=== PATIENT | male | born 1990 | race Caucasian/White ===

== ENCOUNTER 2018-06-18 16:40 | Emergency (ER) | payer MEDICAID ==
[~2018-06-18] VITALS: Ht 185.4 cm; Wt 67.3 kg
[~2018-06-18 16:40] MED LIST: NO HOME MEDS
[2018-06-18] MEDS ORDERED: normal saline 1000ML IV soln IVB ONE (16:45)
[2018-06-18] MEDS ORDERED: LORazepam 2 mg/ml vial IV ONE (16:45)
[2018-06-18] MEDS ORDERED: ondansetron/PF 4mg/2ml inj IV ONE ×2 (16:55→20:50)
[2018-06-18 17:01] LABS: BASOPHILS # (AUTO) 0.1 X10'3 (0-0.2); EOSINOPHILS # (AUTO) 0.1 X10'3 (0-0.9); EOSINOPHILS % (AUTO) 0.9 % (0-6); HEMOGLOBIN 17.3 g/dl (14.0-17.9); MEAN CORPUSCULAR HGB CONC 34.3 g/dL (33.0-36.5); WHITE BLOOD COUNT 11.1 X10'3 (4.5-11.0)
[2018-06-18 17:03] LABS: BASOPHILS % (AUTO) 0.8 % (0-1); HEMATOCRIT 50.4 % (42.0-52.0); LYMPHOCYTES # (AUTO) 2.5 X10'3 (1.1-4.8); LYMPHOCYTES % (AUTO) 22.5 % (21-51); MEAN CORPUSCULAR HEMOGLOBIN 31.8 PG (27.0-31.0); MEAN CORPUSCULAR VOLUME 92.7 FL (78-98); MEAN PLATELET VOLUME 8.5 FL (7.4-10.4); MONOCYTES # (AUTO) 0.7 X10'3 (0-0.9); MONOCYTES % (AUTO) 6.6 % (2-12); NEUTROPHILS # (AUTO) 7.7 X10'3 (1.8-7.7); NEUTROPHILS % (AUTO) 69.2 % (42-75); PLATELET COUNT 291 X10'3 (140-440); RED BLOOD COUNT 5.43 X10'6 (4.70-6.10); RED CELL DISTRIBUTION WIDTH 13.9 % (11.5-14.5)
--- NOTE | 2018-06-18 17:35 | NUR ---
called poison control. report lexpro 20 mg x22 pills intentional overdose. Poison control reports to look out for seizures and prolonged QT. PC recommends mg, k, ca to be at the higher sides of normal. recommend repeating ekg in 12 hrs. reported PC recommendations to dr. lawrence.
[2018-06-18 17:43] LABS: ALANINE AMINOTRANSFERASE 22 U/L (12-78); ALBUMIN 3.9 G/DL (3.4-5.0); ALBUMIN/GLOBULIN RATIO 1.2 (1.1-1.5); ALKALINE PHOSPHATASE 88 IU/L (46-116); ANION GAP 7 (8-16); ASPARTATE AMINO TRANSFERASE 13 U/L (10-37); BILIRUBIN,TOTAL 0.4 MG/DL (0.1-1.0); BLOOD UREA NITROGEN 14 MG/DL (7-18); BUN/CREATININE RATIO 14.7 (5.4-32.0); CALCIUM 8.2 MG/DL (8.5-10.1); CHLORIDE 106 MMOL/L (99-107); CREATININE 0.95 MG/DL (0.60-1.10); GLUCOSE 98 MG/DL (70-104); POTASSIUM 3.4 MMOL/L (3.5-5.1); SODIUM 141 MMOL/L (135-145); TOTAL CARBON DIOXIDE 27.7 MMOL/L (24-32); TOTAL PROTEIN 7.2 G/DL (6.4-8.2); eGFR > 90 ML/MIN
[2018-06-18 17:47] LABS: URINE AMPHETAMINE SCREEN NEGATIVE (Neg); URINE BARBITUATE SCREEN NEGATIVE (Neg); URINE BENZODIAZEPINES SCREEN NEGATIVE (Neg); URINE CANNABINOID SCREEN NEGATIVE (Neg); URINE COCAINE SCREEN NEGATIVE (Neg); URINE METHADONE SCREEN NEGATIVE (Neg); URINE OPIATE SCREEN NEGATIVE (Neg); URINE PHENCYCLIDINE SCREEN NEGATIVE (Neg)
[2018-06-18 17:54] LABS: ETHANOL 0.245 GM/DL (0.0-0.010)
[2018-06-18 17:55] LABS: ACETAMINOPHEN < 2.0 UG/ML (10-30)
[2018-06-18 18:00] LABS: CLARITY,URINE CLEAR (Clear); COLOR,URINE STRAW (Yellow); GLUCOSE, URINE NEGATIVE (Neg); KETONES,URINE NEGATIVE (Neg); LEUKOCYTE ESTERASE ,URINE NEGATIVE (Neg); NITRITES, URINE NEGATIVE (Neg); OCCULT BLOOD,URINE NEGATIVE (Neg); PH,URINE 5.5 (4.8-8.0); PROTEIN,URINE NEGATIVE (Neg); UROBILINOGEN,URINE 0.2 E.U/dL (0.2-1.0)
[2018-06-18 18:02] LABS: UA COLLECTION TYPE STRAIGHT CATH
--- NOTE | 2018-06-18 21:15 | NUR ---
Pt affirms OD was an active suicide attempt. He denies audio/visual hallucinations at this time. Pt has been actively cutting, right upper thigh, as a coping mechanism which he reports started about 2 years ago, shortly after his first admission to a [facility]. Mood is labile, vascillating between exaggerated mannerisms and tearfulness. He reports being estranged from a significant number of family members as a result of his sexual identification, but works with his step father, with whom he has a supportive relationship. Pt states, "I use to have everything... a good job, people who love me, a nice car, friends. I've lost all that. I keep thinking about the bad choices I make and it makes me not want to go on." Pt denies a precipitating event to this OD incident.
--- NOTE | 2018-06-19 00:10 | NUR ---
[place], Poison Control, f/u. Recommending repeat EKG, continued monitoring for QT elongtion and changes in electrolytes (K>4, ca >9, Mg >2). EDMD Patee notified.
--- NOTE | 2018-06-19 03:15 | NUR ---
The patient was moved to bed #23. He was cooperative with the move and was changed into [facility] scrubs.
--- NOTE | 2018-06-19 04:43 | NUR ---
The patient appears to be asleep
[2018-06-19 05:50] VITALS: BP 152/89
--- NOTE | 2018-06-19 06:57 | NUR ---
Received pt in bed sleeping w/o distress with normal respirations. Awoke and ambulated to bathroom and returned to bed. Currently resting in bed.
--- NOTE | 2018-06-19 10:00 | NUR ---
Pt ate breakfast and used bathroom. Calm and cooperative. Spoke with [facility] and placed on 5150 for DTS. IN bed resting.
== END 2018-06-19 14:48 ==
LOC: ER 16:40
DX: T43.222A Poisoning by selective serotonin reuptake inhibitors, intentional self-harm, initial encounter (principal); F10.929 Alcohol use, unspecified with intoxication, unspecified; F32.9 Major depressive disorder, single episode, unspecified; Y92.89 Other specified places as the place of occurrence of the external cause
CPT/HCPCS: 36415; 80053; 80305; 80320; 80329; 81003; 84443; 85025; 93005; 96374; 96375; 96376; 99285; J2060; J2405; J7030

== ENCOUNTER 2018-06-19 13:39 | Inpatient (IN) | payer MEDICAID ==
[~2018-06-19] VITALS: Ht 185.4 cm; Wt 65.4 kg
[2018-06-19 15:35] VITALS: BP 132/99
[2018-06-19] MEDS ORDERED: tuberculin, purif. prot. deriv. 5 units/0.1ml ID ONE (16:00)
[2018-06-19] MEDS ORDERED: hydrOXYzine 25 MG tablet PO PRN (16:00)
[2018-06-19] MEDS ORDERED: loperamide 2mg capsule PO PRN (16:00)
[2018-06-19] MEDS ORDERED: magnesium hydroxide 30ml (MOM) UD suspension PO PRN (16:00)
[2018-06-19] MEDS ORDERED: mag hydrox/Alum hydrox/simeth 30ml oral suspension PO PRN (16:00)
[2018-06-19] MEDS ORDERED: LORazepam 1 MG tablet PO PRN (16:00)
[2018-06-19] MEDS ORDERED: acetaminophen 325mg tablet PO PRN ×2 (16:00)
--- NOTE | 2018-06-19 16:51 | NUR ---
ADMIT NOTE Pt admitted at 1515 to room 324A on a 5150 for DTS from [facility] after a suicide attempt of ingesting 22 lexapro with vodka. Pt was found unresponsive in the ambulance bay on 06/18/18. He reports that he had been planning this suicide since mid-May and believed this would kill him. He wrote several goodbye letters to his friends. Last psychiatric hospitalization was at [facility] in 2017. He is not currently on any medications (lexapro was an old bottle, was not taking). Pt has superficial scratches on his right thigh. Pictures documented. Pt changed into green scrubs on arrival and belongings checked for safety and inventoried. Vitals stable. Oriented to unit. Placed on q 15 min safety checks.
[2018-06-19 20:55] VITALS: BP 120/82
--- NOTE | 2018-06-20 00:58 | NUR ---
Nursing Progress Note Legal hold: 5150 Client on involuntary status for DTS Report received with use of SBAR from: EVIE Albert Why are they here: Pt found unresponsive on 06/18/18 after OD on lexapro and vodka. Pt had been planning this attempt since mid-May, and wrote several good bye letters to friends and family. Assessment What has happened this shift: Pt sitting on bed at change of shift. During 1:1, pt stated he feels "irritated and angry" that he is unable to complete anything, "I can't even kill myself properly." Pt stated he doesn't feel SI in this moment, but he is still sad and hopeless. He presents as somber and melancholy, making only intermittent eye contact during the conversation. Pt shared emotions and potential triggers with some probing; he has a general, chronic sense of worthlessness. He has friends but "feel bad they have to put up with this crap I put them through (referring to SAs)". He mentioned a passion for art and music as an outlet several times, stating he even tried study music in college but it didn't pagan out due to circumstances in his private life (he supported his ex-gf through parental deaths during this time which took up most of his reserves causing him to eventually drop courses). He feels lost and without a sense of direction: "I am tired of waking up, going to my job (which he is unhappy at due to poor management), and coming home waiting to go to bed just so I can do it again the next day." Pt stated previous medications did not work for him so he stopped taking them. After assessment pt attended snack and paced the halls several times before turning in to sleep. S/I: Denies A/VH: Denies Sleep: See Sleep Hour Charting ADL's: Independent Group attendance: Y - HS Snack Were meds taken: N/A Any med S/E: N/A Mental Status Exam Appearance: Clean, long hair loose and brushed, wearing hospital green scrubs and nonskid socks Eye contact: Intermittent, when contact made it is brief Behavior: Cooperative, paced halls several times, attended snack, sat in room Speech: WNL Mood: "I feel irritated and angry" Affect: Flat Thought process: Linear Thought Content: Why is unable to complete "simple tasks", Why he can't follow through, Disliking his job Cognition: A&Ox4 Insight: Poor Judgment: Poor PRN's used: Atarax Therapeutic interventions: 1:1 assessment for severity of symptoms, therapeutic listening with positive reinforcement, reassurance, encouraged group attendance, Q15 minute safety checks. Restraints/seclusion/emergency medication: none Justification of Continued Inpatient Treatment: Pt has recent serious OD attempt, remains depressed and is at risk for readmittance if not stabilized.
[2018-06-20 08:18] VITALS: BP 120/83
[2018-06-20 08:44] LABS: CHOL/HDL RATIO 2.2 (0.00-4.99); CHOLESTEROL 159 MG/DL (0-200); HDL CHOLESTEROL 72 MG/DL (35-60); LDL CHOLESTEROL 79 MG/DL (50-100); TRIGLYCERIDES 73 MG/DL (20-135)
[2018-06-20 08:50] LABS: HEMOGLOBIN A1C 5.4 % (4.5-6.2)
--- NOTE | 2018-06-20 15:03 | NUR ---
Nursing Progress Note Legal hold: 5150 Client on involuntary status for DTS Report received with use of SBAR from: EVIE Albert Why are they here: Pt found unresponsive on 06/18/18 after OD on lexapro and vodka. Pt had been planning this attempt since mid-May, and wrote several good bye letters to friends and family. Assessment What has happened this shift: Patient was asleep at change of shift. Patient was up for breakfast and social with peers. Patient took a nap after breakfast. He presents a little sad with very poor eye contact during this long conversation. Patient was very open about his feelings and his life. Patient has a few close friends and lives with his roommate. Patient spoke of a very stressful and physical work environment. Patient states he quit his job on Sunday and his suicide attempt happened on Sunday. Patient states he doesn't feel suicidal at the moment but feels hopeless. Patient thinks he could get his job back if he wanted to but he is not sure. Patient works with his step-father who has been good to him. Patient went to group today. Patient states he used to take medication for ADHD and Zoloft for depression but nothing ever helped him feel normal. Patient denies sexual abuse but states he was bullied his entire school years, because he was small or whatever reason they wanted to. Patient appears very depressed. S/I: Denies A/VH: Denies Sleep: 7 but patient doesn't believe he slept but a couple of hours. ADL's: Independent Group attendance: Y - HS Snack Were meds taken: N/A Any med S/E: N/A Mental Status Exam Appearance: Clean, long hair loose and brushed, wearing hospital green scrubs and nonskid socks Eye contact: Intermittent, when contact made it is brief Behavior: Cooperative, paced halls several times, attended snack, sat in room Speech: WNL Mood: Depressed Affect: Flat Thought process: Linear Thought Content: Dislikes the stress of his job Cognition: A&Ox4 Insight: Poor Judgment: Poor PRN's used: Atarax Therapeutic interventions: 1:1 assessment for severity of symptoms, therapeutic listening with positive reinforcement, reassurance, encouraged group attendance, Q15 minute safety checks. Restraints/seclusion/emergency medication: none Justification of Continued Inpatient Treatment: Pt has recent serious OD attempt, remains depressed and is at risk for readmittance if not stabilized.
[2018-06-20] MEDS ORDERED: potassium Cl 40MEQ/NS 500ml 500 ML IV PRN ×2 (16:10)
[2018-06-20] MEDS ORDERED: magnesium Cl slow-release 64mg tablet PO PRN (16:10)
[2018-06-20] MEDS ORDERED: magnesium 4gm in 100ml NS 100 ML IV PRN (16:10)
[2018-06-20] MEDS ORDERED: potassium Cl 20 mEq SR tablet PO PRN ×2 (16:10)
[2018-06-20 19:00] VITALS: BP 137/82
[2018-06-20] MEDS ORDERED: QUEtiapine 25mg tablet PO SCH (21:00)
[2018-06-20] MEDS: thiamine 100mg tablet PO SCH (21:18)
--- NOTE | 2018-06-21 01:43 | NUR ---
Nursing Progress Note Legal hold: 5150 Client on involuntary status for DTS Report received with use of SBAR from: EVIE Rocha Why are they here: Pt found unresponsive on 06/18/18 after OD on lexapro and vodka. Pt had been planning this attempt since mid-May, and wrote several good bye letters to friends and family. Assessment What has happened this shift: Pt watching TV in group room at change of shift. During 1:1, pt affect is markedly different from last night; pt voluntarily elaborated on various topics regarding childhood, primary focus being his father. "I know he is smart and talented, but it's upsetting that he didn't think he was good enough to follow his passions. He was. I don't want to be like him. I don't want to be someone who wonders 'if'." Pt is restless during conversation, fidgeting and repositioning frequently. He smiles and laughs appropriately, but eye contact remains intermittent and when contact is direct, it is very brief. Pt denies suicide at this time, but states he feels sad and knows he needs to get help because his mood fluctuations "keep me from finishing anything." He stated. "I know it's weird because I'm sad but I'm also hopeful about the medications, too, that they will help me. I really hope I get good sleep tonight because it has been a long time since I've felt like I've slept well." Pt stated he is trying to learn skills from group and apply them to his life. He remains stressed about his work situation and wishes to find another job; he currently has some prospects based on recommendations from friends. Pt sat in the group room watching TV and walked the halls majority of the shift before turning in to sleep. S/I: Denies A/VH: Denies Sleep: See Sleep Hour Charting ADL's: Independent Group attendance: Y - HS Snack; pt reported he has been "hungry all day" Were meds taken: Y Any med S/E: None reported, none observed Mental Status Exam Appearance: Clean, long hair loose and brushed, wearing hospital green scrubs and nonskid socks Eye contact: Intermittent, when contact made it is brief Behavior: Cooperative, paced halls several times, attended snack, watched tv in group room Speech: WNL, Mood: "I feel sad but hopeful about the meds" Affect: Expressive Thought process: Linear Thought Content: hopeful about the medications, stressing about finding a job Cognition: A&Ox4 Insight: Poor to fair Judgment: Poor PRN's used: None Therapeutic interventions: 1:1 assessment for severity of symptoms, therapeutic listening with positive reinforcement, reassurance, encouraged group attendance, Q15 minute safety checks. Restraints/seclusion/emergency medication: none Justification of Continued Inpatient Treatment: Pt has recent serious OD attempt, remains depressed and is at risk for readmittance if not stabilized.
[2018-06-21] MEDS: thiamine 100mg tablet PO SCH ×2 (08:09→21:10)
[2018-06-21] MEDS: folic acid 1mg tablet PO SCH (08:09)
[2018-06-21] MEDS: buPROPion SR 150mg tablet PO SCH (08:09)
[2018-06-21 08:12] VITALS: BP 117/75
[2018-06-21 11:04] LABS: MAGNESIUM 2.2 MG/DL (1.5-2.4); POTASSIUM 4.6 MMOL/L (3.5-5.1)
--- NOTE | 2018-06-21 14:17 | NUR ---
Nursing Progress Note Legal hold: 5150 Client on involuntary status for DTS Report received with use of SBAR from: Altagracia Gaxiola RN Why are they here: Pt found unresponsive on 06/18/18 after OD on lexapro and vodka. Pt had been planning this attempt since mid-May, and wrote several good bye letters to friends and family. Assessment What has happened this shift: Patient was asleep at change of shift. Patient was up for breakfast and social with peers. He presents a little sad with very poor eye contact during our conversation. Patient states he doesn't feel suicidal at the moment but feels hopeless with depressed affect. Patient went to groups today. Patient states the Trazodone made no difference in how he slept but it did make him drowsy. Patient appears very depressed. Patient hangs out in the Community Room with peers and watches TV or chats which seems to lift his mood. Patient started Wellbutrin today and did not get any PRN medication at the time of this writing. S/I: Denies A/VH: Denies Sleep: Up most of the day ADL's: Independent Group attendance: Y Were meds taken: yes Any med S/E: N/A Mental Status Exam Appearance: Clean, long hair loose and brushed, wearing hospital green scrubs and nonskid socks Eye contact: Intermittent, when contact made it is brief Behavior: Cooperative, paced halls several times, Speech: WNL Mood: Depressed Affect: Flat Thought process: Linear Thought Content: Dislikes the stress of his job Cognition: A&Ox4 Insight: Poor Judgment: Poor PRN's used: None Therapeutic interventions: 1:1 assessment for severity of symptoms, therapeutic listening with positive reinforcement, reassurance, encouraged group attendance, Q15 minute safety checks. Restraints/seclusion/emergency medication: none Justification of Continued Inpatient Treatment: Pt has recent serious OD attempt, remains depressed and is at risk for readmittance if not stabilized.
[2018-06-21 19:00] VITALS: BP 112/76
[2018-06-21] MEDS ORDERED: quetiapine 100mg tablet PO SCH (21:00)
--- NOTE | 2018-06-22 00:50 | NUR ---
Nursing Progress Note: Legal hold: 5150 Client on involuntary status DTS Report received from nurse with use of SBAR: EVIE Rocha Why are they here: Pt found unresponsive on 06/18/18 outside [facility] after OD on Lexapro and vodka. Pt had been planning this attempt since mid-May, and wrote several good bye letters to friends and family. He admitted to feeling depressed, hopeless, suffering from insomnia, and isolating in his home. Pt. has a previous psych hospitalization history at [facility] for another attempted overdose. He admits that he was bullied as a child and suffers from some social anxiety. Pt. has self-inflected cuts to his rt. thigh. His blood alcohol level was elevated upon admission and he required magnesium and potassium replacements. Assessment What has happened this shift: Pt. up pacing the hallway at the beginning of the shift, he asks to use the phone to call his friend, but is unable to get in contact with him and reports some distress. Pt. later in the group room watching TV and occasionally interacting with others. He presents as cooperative, restless, and withdrawn, however denies the need for any anxiolytics. 1:1 completed at bedside, pt. denies S/I and reports his depression and anxiety are under control, he states, "I'm actually in good spirits right now." When questioned by this contract writer, pt. reports understanding that substance abuse adversely interacts with prescription medications, and he reports he plans to stay away from alcohol in the future. However, pt. states, "In my defense, I was actually trying to get help hours before-hand, and my friends brought me to the ER." He reports he does not have a lot of friends and is not close with his family, however, he has a few close friends that are "like family." S/I, H/I: Denies A/VH: N/A Sleep: Pt. reports he struggles with insomnia and he is hoping the increase in his Seroquel tonight will allow him to get more sleep. This contract writer encouraged pt. to notify staff if he is unable to sleep, and he reported understanding. ADL's: Independent Group attendance: Pt reports he attends all groups Were meds taken: Yes Any med S/E: None Mental Status Exam Appearance: Neat, long hair brushed, and dressed appropriately in hospital attire Eye contact: Fair, looks away frequently Behavior: Cooperative and restless Speech: Soft, minimal, however WNL Mood: Pleasant, however guarded Affect: Blunted Thought process: Linear with poverty to thought regarding mental health Thought Content: Preoccupation with getting in contact with his friends, and some phobia exhibited regarding social situations Cognition: A&O X4 Insight: Poor Judgment: Fair Interventions PRN's used: None Therapeutic interventions: Introduced self and established rapport, maintained a safe and therapeutic environment, established contract for safety, provided medication education, maintained a quiet environment to promote sleep and encouraged pt. to notify staff of any insomnia, provided education on adverse interaction between substance abuse and prescription medications, and maintained q 15 min safety checks. Restraints/seclusion/emergency medication: N/A Justification of Continued Inpatient Treatment: Pt. requires stabilization with medications and a safe and therapeutic environment to prevent readmission.
[2018-06-22] MEDS: thiamine 100mg tablet PO SCH (07:58)
[2018-06-22] MEDS: buPROPion SR 150mg tablet PO SCH (07:58)
[2018-06-22] MEDS: folic acid 1mg tablet PO SCH (07:58)
[2018-06-22 08:18] LABS: MAGNESIUM 2.2 MG/DL (1.5-2.4); POTASSIUM 4.1 MMOL/L (3.5-5.1)
[2018-06-22 08:26] VITALS: BP 111/72
[2018-06-22] MEDS ORDERED: BUPR-84 PO (10:49)
[2018-06-22] MEDS ORDERED: QUET100T33 PO (10:49)
--- NOTE | 2018-06-22 12:42 | NUR ---
Nursing Discharge note Assessment What has happened this shift: Pt. in room at at the beginning of the shift. Completed 1:1 assessment at bedside. When asked about his current level of depression, he denies however, does state he is nervous about his discharge. Pt. Elaborated that it is not anxiety but just the feeling of moving to the next step to being healthy. When asked Pt. Stated he has good support from friends, specifically his roommate who he admits works long hours which is why he didn't reach out for help before. Pt. Volunteered his plan to look for and attend an Alcoholics Anonymous group. He presents as cooperative, restless, denies the need for any anxiolytics. Patient was provided with discharge instructions, ongoing support services, and appropriate clothing. Awaiting his sister, who is on her way to pick him up. S/I, H/I: Denies A/VH: N/A Sleep: 7.5 ADL's: Independent Group attendance: yes Were meds taken: Yes Any med S/E: None Mental Status Exam Appearance: Neat, long hair brushed, and dressed appropriately in hospital attire Eye contact: Good Behavior: Cooperative and nervous Speech: Soft, appropriate Mood: Pleasant, nervous but positive outlook Affect: Congruent with mood Thought process: Linear Thought Content: Discharge and follow up plan to maintain stable mental health Cognition: A&O X4 Insight: Good Judgment: Good
== END 2018-06-22 12:55 | disposition home or self-care (01) | DRG 751 ==
LOC: ADULT MH 13:39
PROVIDERS: ADMIT Psychiatry & Neurology Psychiatry; ATTEND Psychiatry & Neurology Psychiatry
DX: F33.2 Major depressive disorder, recurrent severe without psychotic features (principal); F10.10 Alcohol abuse, uncomplicated; T43.222A Poisoning by selective serotonin reuptake inhibitors, intentional self-harm, initial encounter; F12.90 Cannabis use, unspecified, uncomplicated; F41.9 Anxiety disorder, unspecified; T51.0X2A Toxic effect of ethanol, intentional self-harm, initial encounter; F90.9 Attention-deficit hyperactivity disorder, unspecified type; Y92.89 Other specified places as the place of occurrence of the external cause; Z87.891 Personal history of nicotine dependence
CPT/HCPCS: 36415; 80061; 83036; 83735; 84132; 87070; 99285; Q0177

== ENCOUNTER 2019-11-03 02:44 | Emergency (ER) | payer MEDICAID ==
[~2019-11-03] VITALS: Ht 180.3 cm; Wt 70.5 kg
[~2019-11-03 02:44] MED LIST changes: +BUPR-72 PO; +QUET100T33 PO
[2019-11-03] MEDS ORDERED: normal saline 1000ML IV soln IVB ONE (02:55)
[2019-11-03] MEDS ORDERED: ondansetron/PF 4mg/2ml inj IV ONE (02:55)
[2019-11-03] MEDS ORDERED: pantoprazole 40 MG vial IV ONE (02:55)
--- NOTE | 2019-11-03 03:26 | NUR ---
Call out made to Poison Control and spoke with [facility]. Per PC agent, given the amount of ibuprofen allegedly ingested, mild GI symptoms could be expected. Recommendations: Salicylates, tylenol and ETOH levels now. CMP now and then repeated again in 4-6 hours.
[2019-11-03] MEDS ORDERED: ESCI10TA61 PO (03:38)
[2019-11-03] MEDS ORDERED: ESTR40VI4 IM (03:38)
[2019-11-03] MEDS ORDERED: SPIR100T5 PO (03:38)
[2019-11-03] MEDS ORDERED: PROG100C11 PO (03:38)
[2019-11-03 03:59] LABS: BASOPHILS # (AUTO) 0.1 X10'3 (0-0.2); BASOPHILS % (AUTO) 0.5 % (0-1); EOSINOPHILS # (AUTO) 0.1 X10'3 (0-0.9); EOSINOPHILS % (AUTO) 0.9 % (0-6); HEMATOCRIT 37.8 % (42.0-52.0); HEMOGLOBIN 12.8 g/dl (14.0-17.9); LYMPHOCYTES % (AUTO) 24.1 % (21-51); MEAN CORPUSCULAR HEMOGLOBIN 31.4 PG (27.0-31.0); MEAN CORPUSCULAR HGB CONC 33.8 g/dL (33.0-36.5); MEAN CORPUSCULAR VOLUME 92.8 FL (78-98); MONOCYTES # (AUTO) 0.9 X10'3 (0-0.9); MONOCYTES % (AUTO) 7.1 % (2-12); NEUTROPHILS # (AUTO) 8.3 X10'3 (1.8-7.7); NEUTROPHILS % (AUTO) 67.4 % (42-75); PLATELET COUNT 302 X10'3 (140-440); RED BLOOD COUNT 4.07 X10'6 (4.70-6.10); RED CELL DISTRIBUTION WIDTH 13.3 % (11.5-14.5); WHITE BLOOD COUNT 12.4 X10'3 (4.5-11.0)
[2019-11-03 04:06] LABS: ALANINE AMINOTRANSFERASE 18 U/L (12-78); ALBUMIN/GLOBULIN RATIO 1.1 (1.1-1.5); ALKALINE PHOSPHATASE 69 IU/L (46-116); ANION GAP 14 (8-16); ASPARTATE AMINO TRANSFERASE 11 U/L (10-37); BILIRUBIN,TOTAL 0.2 MG/DL (0.1-1.0); BLOOD UREA NITROGEN 15 MG/DL (7-18); CALCIUM 8.6 MG/DL (8.5-10.1); CHLORIDE 103 MMOL/L (99-107); CREATININE 0.88 MG/DL (0.60-1.10); GLUCOSE 105 MG/DL (70-104); POTASSIUM 3.3 MMOL/L (3.5-5.1); SODIUM 140 MMOL/L (135-145); TOTAL CARBON DIOXIDE 23.1 MMOL/L (24-32); TOTAL PROTEIN 7.5 G/DL (6.4-8.2); eGFR > 90 ML/MIN
[2019-11-03 04:13] LABS: ETHANOL 0.118 GM/DL (0.0-0.010)
[2019-11-03 04:15] LABS: ACETAMINOPHEN 73.3 UG/ML (10-30)
[2019-11-03 04:32] LABS: URINE AMPHETAMINE SCREEN NEGATIVE (Neg); URINE BARBITUATE SCREEN NEGATIVE (Neg); URINE BENZODIAZEPINES SCREEN NEGATIVE (Neg); URINE CANNABINOID SCREEN NEGATIVE (Neg); URINE COCAINE SCREEN NEGATIVE (Neg); URINE METHADONE SCREEN NEGATIVE (Neg); URINE OPIATE SCREEN NEGATIVE (Neg); URINE PHENCYCLIDINE SCREEN NEGATIVE (Neg)
--- NOTE | 2019-11-03 07:05 | NUR ---
PATIENT TRANSFERRED FROM ROOM 15 TO ER OVERFLOW ROOM 24.
--- NOTE | 2019-11-03 07:27 | NUR ---
Received pt to ER overflow from main ER. Pt here for tylenol overdose last night while drinking alcohol. Pt currently calm and appears sober. Pt states he currently is not experiencing S.I. and endorses remorse over actions.
--- NOTE | 2019-11-03 07:52 | NUR ---
Pt has multiple superficial scratch to right forearm and back of right hand by his thumb which he says he did a couple of days ago with scissors. Pt states he has a h/o cutting which he is working on with his therapist.
[2019-11-03] MEDS ORDERED: ESTRADIOL VALERATE IM SCH (08:50)
[2019-11-03] MEDS ORDERED: spironolactone 25 MG tablet PO SCH (08:53)
--- NOTE | 2019-11-03 09:37 | NUR ---
Pt had breakfast and then fell to sleep and is currently resting calmly in no distress.
--- NOTE | 2019-11-03 09:39 | NUR ---
Poision control, [place], called and labs reviewed. No more reccommendations at this time.
[2019-11-03 10:02] LABS: ALANINE AMINOTRANSFERASE 16 U/L (12-78); ALBUMIN 3.6 G/DL (3.4-5.0); ALBUMIN/GLOBULIN RATIO 1.1 (1.1-1.5); ALKALINE PHOSPHATASE 52 IU/L (46-116); ANION GAP 7 (8-16); ASPARTATE AMINO TRANSFERASE 14 U/L (10-37); BILIRUBIN,TOTAL 0.2 MG/DL (0.1-1.0); BLOOD UREA NITROGEN 10 MG/DL (7-18); BUN/CREATININE RATIO 11.8 (5.4-32.0); CHLORIDE 106 MMOL/L (99-107); CREATININE 0.85 MG/DL (0.60-1.10); GLUCOSE 93 MG/DL (70-104); POTASSIUM 4.1 MMOL/L (3.5-5.1); SODIUM 140 MMOL/L (135-145); TOTAL CARBON DIOXIDE 26.6 MMOL/L (24-32); eGFR > 90 ML/MIN
[2019-11-03 10:21] VITALS: BP 123/78
--- NOTE | 2019-11-03 11:00 | NUR ---
Pt lying quietly in bed without complaints.
--- NOTE | 2019-11-03 12:58 | NUR ---
Pt IV lock was removed and tolerated well. Pt continues to assert that he's ok and can go home. Pt currently sitting up in bed eating lunch without complaints.
--- NOTE | 2019-11-03 15:00 | NUR ---
Pt sat quietly in bed after lunch without complaints.
--- NOTE | 2019-11-03 15:34 | NUR ---
Emergency contact: [phone] Umesh Hoff
[2019-11-03] MEDS ORDERED: progesterone, micronized 100mg capsule PO SCH (21:00)
[2019-11-07] MEDS ORDERED: ESTRADIOL VALERATE IM SCH (08:50)
== END 2019-11-03 16:28 | disposition home or self-care (01) ==
LOC: ER 02:45
DX: T39.1X2A Poisoning by 4-Aminophenol derivatives, intentional self-harm, initial encounter (principal); F32.9 Major depressive disorder, single episode, unspecified; R11.10 Vomiting, unspecified; Z87.891 Personal history of nicotine dependence; Z79.899 Other long term (current) drug therapy; Y92.89 Other specified places as the place of occurrence of the external cause
CPT/HCPCS: 36415; 80053; 80305; 80320; 80329; 85025; 96361; 96374; 96375; 99285; C9113; J2405; J7030; 99284

== ENCOUNTER 2020-09-24 23:14 | Emergency (ER) | payer MEDICAID ==
[~2020-09-24] VITALS: Ht 180.3 cm; Wt 63.6 kg
[~2020-09-24 23:14] MED LIST changes: -BUPR-72 PO; +ESCI-8 PO; +ESTR40VI4 IM; -NO HOME MEDS; +PROG100C11 PO; -QUET100T33 PO; +SPIR100T5 PO
[2020-09-24 23:29] VITALS: BP 122/87
[2020-09-25 02:29] LABS: CLARITY,URINE CLEAR (Clear); COLOR,URINE YELLOW (Yellow); GLUCOSE, URINE NEGATIVE (Neg); KETONES,URINE 15 mg/dl (Neg); LEUKOCYTE ESTERASE ,URINE NEGATIVE (Neg); NITRITES, URINE NEGATIVE (Neg); OCCULT BLOOD,URINE NEGATIVE (Neg); PROTEIN,URINE NEGATIVE (Neg)
[2020-09-25 02:36] LABS: UA COLLECTION TYPE CLN CATCH MIDSTREAM
[2020-09-25 02:41] LABS: ALANINE AMINOTRANSFERASE 18 U/L (12-78); ALBUMIN 4.1 G/DL (3.4-5.0); ALBUMIN/GLOBULIN RATIO 1.1 (1.1-1.5); ALKALINE PHOSPHATASE 72 IU/L (46-116); ANION GAP 11 (8-16); ASPARTATE AMINO TRANSFERASE 14 U/L (10-37); BILIRUBIN,TOTAL 0.4 MG/DL (0.1-1.0); BLOOD UREA NITROGEN 10 MG/DL (7-18); BUN/CREATININE RATIO 11.2 (5.4-32.0); CALCIUM 8.8 MG/DL (8.5-10.1); CHLORIDE 101 MMOL/L (99-107); CREATININE 0.89 MG/DL (0.60-1.10); GLUCOSE 86 MG/DL (70-104); POTASSIUM 3.8 MMOL/L (3.5-5.1); SODIUM 139 MMOL/L (135-145); TOTAL PROTEIN 7.9 G/DL (6.4-8.2); eGFR > 90 ML/MIN
== END 2020-09-25 03:25 | disposition home or self-care (01) ==
LOC: ER 23:15
DX: R35.0 Frequency of micturition (principal); R11.2 Nausea with vomiting, unspecified; R68.2 Dry mouth, unspecified; R19.7 Diarrhea, unspecified; R10.84 Generalized abdominal pain; Z72.89 Other problems related to lifestyle; Z79.899 Other long term (current) drug therapy
CPT/HCPCS: 36415; 80053; 81003; 99283

== ENCOUNTER 2021-03-27 05:16 | Emergency (ER) | payer MEDICAID ==
[~2021-03-27] VITALS: Ht 180.3 cm; Wt 70.3 kg
[~2021-03-27 05:16] MED LIST changes: -ESTR40VI4 IM; +ESTR40VI7 IM
--- NOTE | 2021-03-27 05:55 | NUR ---
DEVENDRA AT POISON CONTROL ADVISES TO WATCH FOR SEIZURE ACTIVITY, HYPO OR HYPERTENSION. GUARD AIRWAY, INTUBATE PRN. WATCH FOR TACHYCARDIA. OBSERVATION 4-6 HOURS OR GREATER. MONITOR WITH EKG'S. FOR QRS GREATER THAN 120, TWO AMPS OF SODIUM BICARB IS ADVISED. FOR QTC GREATER THAN 450 CORRECT POTTASIUM, MG, AND CALCIUM LEVELS TO THE HIGH END OF NORMAL.
[2021-03-27] MEDS ORDERED: normal saline 1000ML IV soln IVB ONE ×2 (06:05→08:15)
[2021-03-27] MEDS ORDERED: magnesium 2GM in 50ml NS 50 ML IV ONE ×2 (06:05→08:15)
[2021-03-27] MEDS ORDERED: LORazepam 2 mg/ml vial IV ONE (06:20)
[2021-03-27] MEDS ORDERED: normal saline 1000ml 1,000 ML IV ONE (06:25)
[2021-03-27] MEDS ORDERED: sodium bicarbonate 1mEq/ml 10ml Pediatric syringe/vial IV ONE (06:25)
[2021-03-27 06:32] LABS: BASOPHILS % (AUTO) 0.4 % (0-1); EOSINOPHILS # (AUTO) 0.1 X10'3 (0-0.9); HEMATOCRIT 36.9 % (42.0-52.0); HEMOGLOBIN 12.6 g/dl (14.0-17.9); LYMPHOCYTES # (AUTO) 1.4 X10'3 (1.1-4.8); LYMPHOCYTES % (AUTO) 17.9 % (21-51); MEAN CORPUSCULAR VOLUME 91.2 FL (78-98); MEAN PLATELET VOLUME 9.1 FL (7.4-10.4); MONOCYTES # (AUTO) 0.5 X10'3 (0-0.9); MONOCYTES % (AUTO) 6.2 % (2-12); NEUTROPHILS # (AUTO) 5.7 X10'3 (1.8-7.7); NEUTROPHILS % (AUTO) 74.5 % (42-75); PLATELET COUNT 246 X10'3 (140-440); RED BLOOD COUNT 4.05 X10'6 (4.70-6.10); RED CELL DISTRIBUTION WIDTH 12.8 % (11.5-14.5); WHITE BLOOD COUNT 7.6 X10'3 (4.5-11.0)
[2021-03-27 06:39] LABS: ALANINE AMINOTRANSFERASE 20 U/L (12-78); ALBUMIN 4.4 G/DL (3.4-5.0); ALBUMIN/GLOBULIN RATIO 1.3 (1.1-1.5); ALKALINE PHOSPHATASE 73 IU/L (46-116); ANION GAP 12 (8-16); ASPARTATE AMINO TRANSFERASE 12 U/L (10-37); BILIRUBIN,TOTAL 0.1 MG/DL (0.1-1.0); BLOOD UREA NITROGEN 17 MG/DL (7-18); BUN/CREATININE RATIO 18.7 (5.4-32.0); CALCIUM 8.6 MG/DL (8.5-10.1); CHLORIDE 102 MMOL/L (99-107); CREATININE 0.91 MG/DL (0.60-1.10); GLUCOSE 97 MG/DL (70-104); MAGNESIUM 1.9 MG/DL (1.5-2.4); POTASSIUM 3.5 MMOL/L (3.5-5.1); SODIUM 138 MMOL/L (135-145); TOTAL CARBON DIOXIDE 23.8 MMOL/L (24-32); TOTAL PROTEIN 7.8 G/DL (6.4-8.2); eGFR > 90 ML/MIN
[2021-03-27 06:43] LABS: ACETAMINOPHEN < 2.0 UG/ML (10-30); ETHANOL < 0.010 GM/DL (0.0-0.010)
[2021-03-27] MEDS ORDERED: sodium bicarbonate (8.4%) inj. 1 MEQ/ML ML IV ONE (06:45)
--- NOTE | 2021-03-27 06:45 | NUR ---
PATIENT WAKES UP WITH PERIODS OF TWITCHING, REQUESTS WATER, PROVIDED BY STAFF BUT PATIENT FALLS ASLEEP INTERMITTENTLY. PATIENT ABLE TO FOLLOW INSTRUCTIONS AFTER REDIRECTED UPON WAKING UP FROM INTERMITTENT SLEEP. SPOUSE AT BEDSIDE.
[2021-03-27] MEDS ORDERED: sodium bicarbonate (8.4%) inj. 100 MEQ in sodium chloride 0.45% 500ml 500 ML IV ONE (07:05)
--- NOTE | 2021-03-27 07:05 | NUR ---
ATTEMPT TO STRAIGHT CATH PATIENT AT THIS TIME WITH ASSISTANCE OF NURSING STAFF. SPOUSE AT BEDSIDE, PATIENT PUSHED STAFF AWAY, CURSING WITH DISCOMFORT. NO SIGNS OF TRAUMA NOTED. PATIENT REPOSITIONED FOR SAFETY/COMFORT.
[2021-03-27] MEDS ORDERED: potassium Cl 20 mEq SR tablet PO ONE (07:15)
--- NOTE | 2021-03-27 08:10 | NUR ---
PATIENT UP OUT OF BED, NOT FOLLOWING INSTRUCTIONS, UNSTEADY ON FEET, PUSHING STAFF AWAY. DR DEL REAL AT BEDSIDE TO ASSESS PATIENT. PATIENT ESCORTED BACK TO BED FOR SAFETY. D[facility] HOU AT BEDSIDE, TO ENTER ORDERS, SPOUSE AT BEDSIDE.
--- NOTE | 2021-03-27 08:28 | NUR ---
URMILA GAFFNEY AT BEDSIDE TO WATCH PATIENT FOR SAFETY. SPOUSE AT BEDSIDE.
[2021-03-27 10:30] LABS: CLARITY,URINE CLEAR (Clear); COLOR,URINE YELLOW (Yellow); GLUCOSE, URINE NEGATIVE (Neg); KETONES,URINE NEGATIVE (Neg); LEUKOCYTE ESTERASE ,URINE NEGATIVE (Neg); NITRITES, URINE NEGATIVE (Neg); OCCULT BLOOD,URINE SMALL (Neg); PROTEIN,URINE NEGATIVE (Neg); UROBILINOGEN,URINE 0.2 E.U/dL (0.2-1.0)
[2021-03-27 10:31] LABS: UA COLLECTION TYPE CLN CATCH MIDSTREAM
[2021-03-27 10:40] LABS: URINE AMPHETAMINE SCREEN NEGATIVE (Neg); URINE BARBITUATE SCREEN NEGATIVE (Neg); URINE BENZODIAZEPINES SCREEN NEGATIVE (Neg); URINE CANNABINOID SCREEN NEGATIVE (Neg); URINE COCAINE SCREEN NEGATIVE (Neg); URINE METHADONE SCREEN NEGATIVE (Neg); URINE OPIATE SCREEN NEGATIVE (Neg); URINE PHENCYCLIDINE SCREEN NEGATIVE (Neg)
[2021-03-27 10:41] LABS: BACTERIA,URINE NONE SEEN /HPF (Neg); SQUAMOUS EPITHELIAL CELL,UR NONE SEEN /LPF (FEW); WBC,URINE NONE SEEN /HPF (0-4)
[2021-03-27 11:05] LABS: ALBUMIN 3.8 G/DL (3.4-5.0); ANION GAP 4 (8-16); BLOOD UREA NITROGEN 13 MG/DL (7-18); BUN/CREATININE RATIO 19.7 (5.4-32.0); CHLORIDE 104 MMOL/L (99-107); CREATININE 0.66 MG/DL (0.60-1.10); GLUCOSE 119 MG/DL (70-104); SODIUM 133 MMOL/L (135-145); eGFR > 90 ML/MIN
--- NOTE | 2021-03-27 11:40 | NUR ---
UPDATE GIVEN TO POISON CONTROL AT THIS TIME. RECOMMENDED CONTINUED MONITORING UNTIL PATIENT AT BASELINE.
[2021-03-27] MEDS ORDERED: calcium gluconate inj. 1 GM in normal saline 100ml IV soln 100 ML IV ONE (11:55)
[2021-03-27] MEDS ORDERED: CALCIUM GLUC 1gm/50ml NACL,iso 100 ML IV ONE (12:12)
[2021-03-27] MEDS ORDERED: CALCIUM GLUCONATE 1 GM/50 ML IV ONE (12:14)
[2021-03-27] MEDS ORDERED: SODIUM CHLORIDE IV ONE (12:14)
--- NOTE | 2021-03-27 16:25 | NUR ---
PHONE CALL FROM [facility] TO CHECK ON VITALS, NO RECOMMENDATIONS AT THIS TIME. WILL CONTINUE TO CHECK IN ON PT UNTIL BACK AT BASELINE.
--- NOTE | 2021-03-27 19:25 | NUR ---
The patient moved to bed 26 from the main ER. She was drowsy but easily arousable. She was oriented. Her partner, Jayashree was at the bedside and was supportive. The patient receives her medications at [facility]. She has had increased depression for the past two weeks but it is unclear of triggering events at this time. She denies voices but states at times she sees shadows in her periphery vision. She has had previous psychiatric hospitalizations that were in [place]. Per Jayashree she believes past diagnosis include Bipolar and BPD. Drug screen was negative.
--- NOTE | 2021-03-27 19:28 | NUR ---
Significant other, Jayashree,
--- NOTE | 2021-03-27 20:45 | NUR ---
The patient appears to be sleeping
[2021-03-27] MEDS ORDERED: CHOL200012 PO (20:53)
[2021-03-27] MEDS ORDERED: estrogen patch TOP (20:53)
[2021-03-27] MEDS ORDERED: QUET25TA PO (20:53)
[2021-03-27] MEDS ORDERED: PRAZ1CAP5 PO (20:53)
[2021-03-27] MEDS ORDERED: spironolactone 25 MG tablet PO SCH (21:55)
--- NOTE | 2021-03-27 22:39 | NUR ---
The patient appears to be sleeping
--- NOTE | 2021-03-28 00:44 | NUR ---
THe patient appears to be sleeping
--- NOTE | 2021-03-28 02:04 | NUR ---
THe patient appears to be sleeping
--- NOTE | 2021-03-28 04:47 | NUR ---
The patient appears to be sleeping
--- NOTE | 2021-03-28 05:33 | NUR ---
Packet sent to [facility]
--- NOTE | 2021-03-28 07:00 | NUR ---
Pt sleeping restfully, respirations even and unlabored.
[2021-03-28] MEDS ORDERED: Estradiol 0.025mg/day patch (1 per week) TD SCH (08:00)
[2021-03-28] MEDS ORDERED: spironolactone 25 MG tablet PO SCH (08:00)
--- NOTE | 2021-03-28 09:00 | NUR ---
Patient awake with significant other at bedside. Pt prefers to be addressed by "November." Pt is transitioning from male to female. Pt was compliant with care and medications. Pt reports intermittent suicidal thoughts. Pt states "I feel gross," to his recent suicide attempt. Pt states she wishes "to be ." When asked if there were reasons to be alive pt stated "plenty of reasons to on to, but have you looked around you lately?" Pt feels "this world is a depressing place." Pt can remember having sucidal thoughts as a teenager. Pt denies A/VH. Pt has superficial cuts and scars on bilateral forearms.
--- NOTE | 2021-03-28 11:00 | NUR ---
Pt awake lying in bed quietly. No distress noted.
--- NOTE | 2021-03-28 11:38 | NUR ---
Right AC peripheral IV removed. Catheter intact.
--- NOTE | 2021-03-28 13:05 | NUR ---
Pt is lying in bed awake. Significant other at bedside. Behavior appropriate.
--- NOTE | 2021-03-28 13:54 | NUR ---
Gabriela called from Poison Control. Labs and EKG were reviewed. PC closing case.
[2021-03-28 14:16] VITALS: BP 120/77
--- NOTE | 2021-03-28 14:27 | NUR ---
DISCHARGE NOTE: Patient was discharged from unit at 1425. Pt was A&Ox4 at discharge. Pt had no personal belongings, his girlfriend brought in personal attire. Discharge instructions were reviewed with patient and she verbalized understanding. Pt has a follow up appointment with his clinician at [facility] on 04/11 @ 1100 and 1400. Pt denies A/VH and suicidal thoughts.
[2021-03-28] MEDS ORDERED: progesterone, micronized 100mg capsule PO SCH (21:00)
[2021-03-28] MEDS ORDERED: prazosin 1mg capsule PO SCH (21:00)
[2021-03-28] MEDS ORDERED: QUEtiapine 25mg tablet PO SCH (21:00)
[2021-04-03] MEDS ORDERED: Estradiol 0.025mg/day patch (1 per week) TD SCH (08:00)
== END 2021-03-28 14:25 | disposition home or self-care (01) ==
LOC: ER 05:17
DX: T45.0X2A Poisoning by antiallergic and antiemetic drugs, intentional self-harm, initial encounter (principal); Y92.89 Other specified places as the place of occurrence of the external cause; Z20.822 Contact with and (suspected) exposure to COVID-19
CPT/HCPCS: 36415; 71045; 80048; 80053; 80305; 80320; 80329; 81001; 82140; 82948; 83605; 83735; 84100; 84443; 85025; 87635; 93005; 96365; 96366; 96367; 96368; 96375; 99285; C9803; J0610; J2060; J3475; J3490; J7030